=== PATIENT | male | born 1970 | race Caucasian/White ===

== ENCOUNTER 2018-06-30 12:41 | Emergency (ER) | payer OTHER ==
[~2018-06-30] VITALS: Ht 188 cm; Wt 79.5 kg
[2018-06-30 14:00] LABS: BASOPHILS # (AUTO) 0.1 X10'3 (0-0.2); MONOCYTES # (AUTO) 1.2 X10'3 (0-0.9); RED CELL DISTRIBUTION WIDTH 13.5 % (11.5-14.5)
[2018-06-30 14:02] LABS: EOSINOPHILS # (AUTO) 0.2 X10'3 (0-0.9); EOSINOPHILS % (AUTO) 2.1 % (0-6); HEMATOCRIT 40.8 % (42.0-52.0); HEMOGLOBIN 13.6 g/dl (14.0-17.9); LYMPHOCYTES # (AUTO) 2.3 X10'3 (1.1-4.8); LYMPHOCYTES % (AUTO) 20.2 % (21-51); MEAN CORPUSCULAR HEMOGLOBIN 30.2 PG (27.0-31.0); MEAN CORPUSCULAR HGB CONC 33.3 g/dL (33.0-36.5); MEAN CORPUSCULAR VOLUME 90.7 FL (78-98); MEAN PLATELET VOLUME 8.1 FL (7.4-10.4); MONOCYTES % (AUTO) 11.1 % (2-12); NEUTROPHILS # (AUTO) 7.3 X10'3 (1.8-7.7); NEUTROPHILS % (AUTO) 65.6 % (42-75); PLATELET COUNT 394 X10'3 (140-440); WHITE BLOOD COUNT 11.2 X10'3 (4.5-11.0)
[2018-06-30 14:17] LABS: ALANINE AMINOTRANSFERASE 405 U/L (12-78); ALBUMIN 2.9 G/DL (3.4-5.0); ALBUMIN/GLOBULIN RATIO 0.7 (1.1-1.5); ALKALINE PHOSPHATASE 257 IU/L (46-116); ANION GAP 11 (8-16); ASPARTATE AMINO TRANSFERASE 406 U/L (10-37); BILIRUBIN,TOTAL 0.9 MG/DL (0.1-1.0); BLOOD UREA NITROGEN 18 MG/DL (7-18); BUN/CREATININE RATIO 15.8 (5.4-32.0); CHLORIDE 103 MMOL/L (99-107); CREATININE 1.14 MG/DL (0.60-1.10); GLUCOSE 116 MG/DL (70-104); POTASSIUM 4.4 MMOL/L (3.5-5.1); SODIUM 135 MMOL/L (135-145); TOTAL CARBON DIOXIDE 21.1 MMOL/L (24-32); eGFR 69 ML/MIN
--- NOTE | 2018-06-30 15:04 | NUR ---
Called pt. to treatment area, patient not in lobby or outside. No phone number listed. Reviewed labs and discussed with MD, should return. Found phone number for mother, Hoda. She states that pt. doesn't have a phone but she will try and contact son to return.
[2018-06-30] MEDS ORDERED: normal saline 1000ML IV soln IV ONE (16:20)
[2018-06-30 16:56] LABS: ETHANOL < 0.010 GM/DL (0.0-0.010)
--- NOTE | 2018-06-30 17:01 | NUR ---
pt's flu swab was incorrectly labeled with the pt's 's sticker. correct sticker was then placed on specimen.
[2018-06-30] MEDS ORDERED: ipratropium/albuterol 3ml nebule NEB ONE (17:05)
[2018-06-30] MEDS ORDERED: methylPREDNISolone sod succ 125mg/2ml vial IV ONE (17:05)
[2018-06-30 17:11] LABS: URINE AMPHETAMINE SCREEN POSITIVE (Neg); URINE BARBITUATE SCREEN NEGATIVE (Neg); URINE BENZODIAZEPINES SCREEN NEGATIVE (Neg); URINE CANNABINOID SCREEN NEGATIVE (Neg); URINE COCAINE SCREEN NEGATIVE (Neg); URINE METHADONE SCREEN NEGATIVE (Neg); URINE OPIATE SCREEN NEGATIVE (Neg); URINE PHENCYCLIDINE SCREEN NEGATIVE (Neg)
[2018-06-30 17:17] LABS: CLARITY,URINE CLEAR (Clear); COLOR,URINE YELLOW (Yellow); GLUCOSE, URINE NEGATIVE (Neg); KETONES,URINE NEGATIVE (Neg); LEUKOCYTE ESTERASE ,URINE NEGATIVE (Neg); NITRITES, URINE NEGATIVE (Neg); OCCULT BLOOD,URINE NEGATIVE (Neg); PH,URINE 5.5 (4.8-8.0); PROTEIN,URINE 100 mg/dl (Neg)
[2018-06-30 17:18] LABS: UA COLLECTION TYPE CLN CATCH MIDSTREAM
[2018-06-30 17:26] LABS: MUCUS STRANDS FEW /LPF (Neg)
[2018-06-30 17:27] LABS: WBC,URINE 0-4 /HPF (0-4)
[2018-06-30 17:28] LABS: BACTERIA,URINE NONE SEEN /HPF (Neg); RBC,URINE NONE SEEN /HPF (0-2); SQUAMOUS EPITHELIAL CELL,UR NONE SEEN /LPF (FEW)
[2018-06-30 17:29] LABS: AMORPHOUS URATES 1+
[2018-06-30] MEDS ORDERED: AZIT250T2 PO (17:54)
[2018-06-30] MEDS ORDERED: ALBU6.7H INH (17:54)
[2018-06-30 18:20] VITALS: BP 147/71
--- NOTE | 2018-06-30 18:21 | NUR ---
pt having panic attack, pt was positive for meth. vitals stable, pt dc'd home.
== END 2018-06-30 18:11 | disposition home or self-care (01) ==
LOC: ER 12:42
DX: J06.9 Acute upper respiratory infection, unspecified (principal); E86.0 Dehydration; R74.0 Nonspecific elevation of levels of transaminase and lactic acid dehydrogenase [LDH]; I10 Essential (primary) hypertension; F17.200 Nicotine dependence, unspecified, uncomplicated; F15.10 Other stimulant abuse, uncomplicated; Z79.899 Other long term (current) drug therapy; Z90.81 Acquired absence of spleen
CPT/HCPCS: 36415; 71045; 80053; 80305; 80320; 81001; 84484; 85025; 87502; 87503; 93005; 94640; 94760; 96361; 96374; 99284; J2930; J7030

== ENCOUNTER 2018-07-22 17:55 | Inpatient (IN) | payer OTHER ==
[~2018-07-22] VITALS: Ht 190.5 cm; Wt 75.3 kg
[~2018-07-22 17:55] MED LIST: ALBU6.7H INH
[2018-07-22 21:08] LABS: BASOPHILS # (AUTO) 0.1 X10'3 (0-0.2); BASOPHILS % (AUTO) 0.5 % (0-1); EOSINOPHILS # (AUTO) 0.2 X10'3 (0-0.9); EOSINOPHILS % (AUTO) 1.6 % (0-6); HEMOGLOBIN 14.5 g/dl (14.0-17.9); LYMPHOCYTES # (AUTO) 1.4 X10'3 (1.1-4.8); LYMPHOCYTES % (AUTO) 12.4 % (21-51); MEAN CORPUSCULAR HEMOGLOBIN 28.2 PG (27.0-31.0); MEAN CORPUSCULAR HGB CONC 32.2 g/dL (33.0-36.5); MEAN CORPUSCULAR VOLUME 87.7 FL (78-98); MEAN PLATELET VOLUME 7.7 FL (7.4-10.4); MONOCYTES # (AUTO) 0.9 X10'3 (0-0.9); MONOCYTES % (AUTO) 8.2 % (2-12); NEUTROPHILS # (AUTO) 8.8 X10'3 (1.8-7.7); NEUTROPHILS % (AUTO) 77.3 % (42-75); PLATELET COUNT 532 X10'3 (140-440); RED BLOOD COUNT 5.13 X10'6 (4.70-6.10); RED CELL DISTRIBUTION WIDTH 15.3 % (11.5-14.5); WHITE BLOOD COUNT 11.3 X10'3 (4.5-11.0)
[2018-07-22 21:16] LABS: ALBUMIN 2.4 G/DL (3.4-5.0); ALBUMIN/GLOBULIN RATIO 0.6 (1.1-1.5); ALKALINE PHOSPHATASE 307 IU/L (46-116); ANION GAP 10 (8-16); BILIRUBIN,TOTAL 1.6 MG/DL (0.1-1.0); BLOOD UREA NITROGEN 20 MG/DL (7-18); BUN/CREATININE RATIO 16.8 (5.4-32.0); CHLORIDE 101 MMOL/L (99-107); CREATININE 1.19 MG/DL (0.60-1.10); GLUCOSE 130 MG/DL (70-104); POTASSIUM 4.1 MMOL/L (3.5-5.1); SODIUM 135 MMOL/L (135-145); TOTAL CARBON DIOXIDE 24.5 MMOL/L (24-32); TOTAL PROTEIN 6.4 G/DL (6.4-8.2); eGFR 66 ML/MIN
[2018-07-22] MEDS ORDERED: furosemide 10 MG/1 ML 10ml inj IV ONE (21:40)
[2018-07-22 21:42] LABS: ALANINE AMINOTRANSFERASE 2102 U/L (12-78); ASPARTATE AMINO TRANSFERASE 2056 U/L (10-37)
[2018-07-22] MEDS ORDERED: furosemide 40mg/4ml inj IV ONE (21:55)
[2018-07-22] MEDS ORDERED: ondansetron/PF 4mg/2ml inj IV PRN (22:30)
[2018-07-22] MEDS ORDERED: acetaminophen 325mg tablet PO PRN (22:30)
[2018-07-22] MEDS ORDERED: magnesium hydroxide 30ml (MOM) UD suspension PO PRN (22:30)
[2018-07-22] MEDS ORDERED: mag hydrox/Alum hydrox/simeth 30ml oral suspension PO PRN (22:30)
--- NOTE | 2018-07-22 23:01 | NUR ---
Patient in room . I have received report from FABIOLA Bass and had the opportunity to ask questions and assume patient care.
[2018-07-22 23:40] VITALS: BP 126/85
[2018-07-23 05:27] LABS: BASOPHILS % (AUTO) 0.2 % (0-1); EOSINOPHILS # (AUTO) 0.3 X10'3 (0-0.9); EOSINOPHILS % (AUTO) 1.9 % (0-6); HEMATOCRIT 44.3 % (42.0-52.0); HEMOGLOBIN 14.3 g/dl (14.0-17.9); LYMPHOCYTES # (AUTO) 1.5 X10'3 (1.1-4.8); MEAN CORPUSCULAR HEMOGLOBIN 28.3 PG (27.0-31.0); MEAN CORPUSCULAR HGB CONC 32.2 g/dL (33.0-36.5); MEAN PLATELET VOLUME 8.1 FL (7.4-10.4); MONOCYTES # (AUTO) 1.3 X10'3 (0-0.9); MONOCYTES % (AUTO) 9.6 % (2-12); NEUTROPHILS # (AUTO) 10.4 X10'3 (1.8-7.7); NEUTROPHILS % (AUTO) 77.3 % (42-75); PLATELET COUNT 546 X10'3 (140-440); RED BLOOD COUNT 5.04 X10'6 (4.70-6.10); RED CELL DISTRIBUTION WIDTH 15.3 % (11.5-14.5); WHITE BLOOD COUNT 13.5 X10'3 (4.5-11.0)
--- NOTE | 2018-07-23 05:55 | NUR ---
Problems reprioritized. Patient report given, questions answered & plan of care reviewed with FABIOLA Waite. Addendum: 07/23/18 at 0632 by Alex Maurice RN Problems reprioritized. Patient report given, questions answered & plan of care reviewed with FABIOLA Juarez.
[2018-07-23 06:03] LABS: ALBUMIN 2.3 G/DL (3.4-5.0); ALBUMIN/GLOBULIN RATIO 0.6 (1.1-1.5); ALKALINE PHOSPHATASE 288 IU/L (46-116); ANION GAP 8 (8-16); BILIRUBIN,TOTAL 1.3 MG/DL (0.1-1.0); BLOOD UREA NITROGEN 20 MG/DL (7-18); CALCIUM 7.9 MG/DL (8.5-10.1); CHLORIDE 100 MMOL/L (99-107); CREATININE 1.05 MG/DL (0.60-1.10); GLUCOSE 97 MG/DL (70-104); POTASSIUM 3.7 MMOL/L (3.5-5.1); SODIUM 135 MMOL/L (135-145); TOTAL CARBON DIOXIDE 26.7 MMOL/L (24-32); TOTAL PROTEIN 6.1 G/DL (6.4-8.2); TROPONIN I 0.05 NG/ML (0.0-0.05); eGFR 76 ML/MIN
[2018-07-23 06:08] LABS: % IRON SATURATION 4 % (11-46); IRON 15 UG/DL (53-167); TOTAL IRON BINDING CAPACITY 341 UG/DL (259-388)
[2018-07-23 06:12] LABS: ALANINE AMINOTRANSFERASE 1812 U/L (12-78); ASPARTATE AMINO TRANSFERASE 1324 U/L (10-37)
[2018-07-23 07:00] VITALS: BP 125/81
[2018-07-23] MEDS ORDERED: thiamine inj. 100 MG in normal saline 100ml IV soln 100 ML IV ONE ×2 (09:40→12:55)
[2018-07-23] MEDS ORDERED: furosemide 20 MG/2 ML vial IV ONE (09:55)
[2018-07-23] MEDS ORDERED: pneumococcal 23-VAL P-sac vacc 25 mcg/0.5ml vial IMVAC ONE (10:00)
[2018-07-23] MEDS ORDERED: FLU VACC QUAD 2018(5 YR UP)/PF 60 MCG/0.5 ML SYRINGE IM ONE (10:00)
[2018-07-23] MEDS: losartan 50mg tablet PO SCH (10:45)
[2018-07-23 11:00] VITALS: BP 125/89
--- NOTE | 2018-07-23 11:16 | NUR ---
PT HAD 14 BEAT RUN OF V-TACH. HOSPITALIST NOTIFIED. PT TO BE TRANSFERRED TO TELE WHEN BED AVAIALABLE
[2018-07-23] MEDS: folic acid inj. 2 MG, thiamine inj. 100 MG, MVI, adult No.4 with vit. K 10 ML in dextro... IV SCH ×8 (11:30→19:53)
--- NOTE | 2018-07-23 12:25 | NUR ---
Patient in room [facility]. I have received report from Sylvia HICKS and had the opportunity to ask questions and assume patient care. Vitals signs obtained and are stable. Tele #[id number] is on patient and pt is in sinus rhythm. Folic acid bag running at 125 mL/hr, pt is in no apparent distress. Call light given and orientated patient to room. Will continue to monitor.
--- NOTE | 2018-07-23 12:34 | NUR ---
transferred pt to tele.
[2018-07-23 12:47] LABS: URINE AMPHETAMINE SCREEN POSITIVE (Neg); URINE BARBITUATE SCREEN NEGATIVE (Neg); URINE BENZODIAZEPINES SCREEN NEGATIVE (Neg); URINE CANNABINOID SCREEN NEGATIVE (Neg); URINE COCAINE SCREEN NEGATIVE (Neg); URINE METHADONE SCREEN NEGATIVE (Neg); URINE OPIATE SCREEN NEGATIVE (Neg); URINE PHENCYCLIDINE SCREEN NEGATIVE (Neg)
--- NOTE | 2018-07-23 14:48 | NUR ---
Malnutrition consult re: Lost 10# in 3 months. Patient's current wt is up 12# from documented wt of 175# at previous visit 06/30/18; current documented wt is 187#. Pt currently on a heart healthy diet with documented PO intake 100% meeting nutrient needs. Pt with no documented edema or significant decrease in muscle strength. Pt currently does not meet criteria for malnutrition. Will continue to follow and monitor qualifying criteria. Pt with hx of Etoh and meth abuse, pt on w/d protocol which includes banana bag. Will continue to follow. Addendum: 07/23/18 at [address] Amended: Links added.
[2018-07-23] MEDS: LORazepam 2 mg/ml vial IV PRN ×3 (15:46→23:27)
[2018-07-23] MEDS: CefTRIAXone 2gm/D5W 50ml 50 ML IV SCH (16:59)
[2018-07-23 18:00] VITALS: BP 122/80
--- NOTE | 2018-07-23 18:00 | NUR ---
Patient in room PCU 3016. I have received report from Shelia HICKS and had the opportunity to ask questions and assume patient care.
--- NOTE | 2018-07-23 18:05 | NUR ---
promotional table spacer PAGER ID: [phone] MESSAGE: [id number] Asif Soler (FYI) pt had a 5 beat run of VTach, pt asymptomatic with BP 111/65. Thank you, Shelia#[phone]
--- NOTE | 2018-07-23 18:40 | NUR ---
Problems reprioritized. Patient report given, questions answered & plan of care reviewed with Jennifer HICKS.
[2018-07-23] MEDS: furosemide 20 MG/2 ML vial IV SCH (19:54)
[2018-07-23 22:00] VITALS: BP 114/84
[2018-07-24] VITALS (7 sets, daily range): BP systolic 97–120; BP diastolic 61–85
[2018-07-24] MEDS: LORazepam 2 mg/ml vial IV PRN ×3 (04:24→19:36)
[2018-07-24 05:35] LABS: BASOPHILS # (AUTO) 0.1 X10'3 (0-0.2); BASOPHILS % (AUTO) 0.6 % (0-1); EOSINOPHILS # (AUTO) 0.1 X10'3 (0-0.9); EOSINOPHILS % (AUTO) 0.7 % (0-6); HEMATOCRIT 43.6 % (42.0-52.0); HEMOGLOBIN 14.3 g/dl (14.0-17.9); LYMPHOCYTES # (AUTO) 1.5 X10'3 (1.1-4.8); LYMPHOCYTES % (AUTO) 12.2 % (21-51); MEAN CORPUSCULAR HEMOGLOBIN 28.8 PG (27.0-31.0); MEAN CORPUSCULAR HGB CONC 32.7 g/dL (33.0-36.5); MEAN CORPUSCULAR VOLUME 87.8 FL (78-98); MEAN PLATELET VOLUME 7.9 FL (7.4-10.4); MONOCYTES # (AUTO) 1.9 X10'3 (0-0.9); MONOCYTES % (AUTO) 15.2 % (2-12); NEUTROPHILS # (AUTO) 8.7 X10'3 (1.8-7.7); NEUTROPHILS % (AUTO) 71.3 % (42-75); PLATELET COUNT 525 X10'3 (140-440); RED BLOOD COUNT 4.97 X10'6 (4.70-6.10); RED CELL DISTRIBUTION WIDTH 15.2 % (11.5-14.5); WHITE BLOOD COUNT 12.2 X10'3 (4.5-11.0)
--- NOTE | 2018-07-24 06:00 | NUR ---
Problems reprioritized. Patient report given, questions answered & plan of care reviewed with Mirian HICKS.
[2018-07-24 06:05] LABS: ALBUMIN 2.3 G/DL (3.4-5.0); ALBUMIN/GLOBULIN RATIO 0.5 (1.1-1.5); ALKALINE PHOSPHATASE 244 IU/L (46-116); AMYLASE 79 U/L (25-115); ANION GAP 9 (8-16); ASPARTATE AMINO TRANSFERASE 503 U/L (10-37); BLOOD UREA NITROGEN 15 MG/DL (7-18); BUN/CREATININE RATIO 14.4 (5.4-32.0); CALCIUM 8.1 MG/DL (8.5-10.1); CHLORIDE 96 MMOL/L (99-107); CREATININE 1.04 MG/DL (0.60-1.10); GLUCOSE 101 MG/DL (70-104); LIPASE 331 U/L (73-393); MAGNESIUM 1.6 MG/DL (1.5-2.4); PHOSPHORUS 3.1 MG/DL (2.3-4.5); POTASSIUM 3.7 MMOL/L (3.5-5.1); SODIUM 130 MMOL/L (135-145); TOTAL CARBON DIOXIDE 24.9 MMOL/L (24-32); TOTAL PROTEIN 6.5 G/DL (6.4-8.2); eGFR 77 ML/MIN
[2018-07-24 06:08] LABS: ALANINE AMINOTRANSFERASE 1232 U/L (12-78)
[2018-07-24 06:14] LABS: INR 1.1 INR; PROTHROMBIN TIME 11.3 SECONDS (9.0-12.0)
--- NOTE | 2018-07-24 06:30 | NUR ---
Patient in room PCU 3016. I have received report from Jennifer HICKS and had the opportunity to ask questions and assume patient care.
[2018-07-24] MEDS: CefTRIAXone 2gm/D5W 50ml 50 ML IV SCH (08:09)
[2018-07-24] MEDS: furosemide 20 MG/2 ML vial IV SCH ×2 (08:09→19:35)
[2018-07-24] MEDS: losartan 50mg tablet PO SCH (08:10)
[2018-07-24] MEDS ORDERED: potassium Cl 20 mEq SR tablet PO ONE (09:35)
[2018-07-24] MEDS ORDERED: magnesium Cl slow-release 64mg tablet PO PRN (09:40)
[2018-07-24] MEDS ORDERED: magnesium 4gm in 100ml NS 100 ML IV PRN (09:40)
[2018-07-24] MEDS ORDERED: potassium Cl 40MEQ/NS 500ml 500 ML IV PRN ×2 (09:40)
[2018-07-24] MEDS ORDERED: potassium Cl 20 mEq SR tablet PO PRN ×2 (09:40)
--- NOTE | 2018-07-24 09:48 | NUR ---
Dr. Palumbo in to see patient for 17 beat run of VT, orders to replace K to 4.0 and Mg to 2.0. Giving patient a dose of K 40mEq now and follow replacement protocol, following Mg replacement protocol to replace to a level of 2.0. Patient is currently sleeping and calm. Ativan given approx an hour ago. Will continue to monitor.
[2018-07-24] MEDS: carVEDilol 3.125mg tablet PO SCH ×2 (11:47→19:35)
[2018-07-24] MEDS ORDERED: multivitamins, therapeutics tablet PO ONE (12:05)
[2018-07-24] MEDS ORDERED: thiamine 100mg tablet PO ONE (12:05)
[2018-07-24] MEDS ORDERED: folic acid 1mg tablet PO ONE (12:05)
--- NOTE | 2018-07-24 14:13 | NUR ---
Student documentation: I have reviewed and agree with all interventions, assessments performed and documented by Faustina DOHERTY. Student Medication Administration: For this medication-pass time frame, all medication were reviewed, dispensed, administered and documented per hospital policy by Faustina DOHERTY. Problems reprioritized. Patient report given, questions answered & plan of care reviewed with Lubna HICKS.
--- NOTE | 2018-07-24 18:00 | NUR ---
Patient in room PCU 3016. I have received report from Lubna RN, Nancy RN and had the opportunity to ask questions and assume patient care.
--- NOTE | 2018-07-24 18:01 | NUR ---
PAGER ID: [phone] MESSAGE: [id number] pt Ryder had a 5 beat run of Inside [employer]. - [place] [phone]
[2018-07-24] MEDS: potassium Cl 20 mEq SR tablet PO SCH (18:03)
--- NOTE | 2018-07-24 18:27 | NUR ---
[place] Medication Administration: For this medication-pass time frame, medication were reviewed, dispensed, administered and documented per hospital policy by FABIOLA Cruz. [place] documentation: I have reviewed and agree with all interventions, assessments performed and documented by FABIOLA Cruz.
--- NOTE | 2018-07-24 18:51 | NUR ---
PAGER ID: [phone] MESSAGE: [id number] pt Soler pt girlfriend concerned about pt cough and HTN med and also thinks he is having an adverse reaction to Ativan. Please review and advise. - Lubna [phone]
[2018-07-24] MEDS: lactobacillus rhamnosus 10,000 MMU CELLS/CAPSULE PO SCH (19:35)
[2018-07-25] MEDS: LORazepam 2 mg/ml vial IV PRN ×3 (01:48→08:23)
--- NOTE | 2018-07-25 01:50 | NUR ---
Contacted Dr. Hanna to report the JVD noted on the left side of patient's neck by cell phone # [phone].
--- NOTE | 2018-07-25 01:54 | NUR ---
patient pulled out PIV early in the shift. He requested prn Ativan. I had to have the IV restarted. I noticed that the patient has JVD to the Left side. I will report this to the online marketing coordinator MD.
[2018-07-25 02:00] VITALS: BP 101/67
--- NOTE | 2018-07-25 02:30 | NUR ---
Dr. Hanna acknowledged my message regarding this patient's JVD.
[2018-07-25 06:00] VITALS: BP 107/80
--- NOTE | 2018-07-25 06:26 | NUR ---
Problems reprioritized. Patient report given, questions answered & plan of care reviewed with FABIOLA Del Rio.
--- NOTE | 2018-07-25 06:30 | NUR ---
Patient in room PCU 3016. I have received report from FABIOLA Castro and had the opportunity to ask questions and assume patient care.
[2018-07-25 08:00] LABS: BASOPHILS # (AUTO) 0.1 X10'3 (0-0.2); BASOPHILS % (AUTO) 0.9 % (0-1); EOSINOPHILS # (AUTO) 0.2 X10'3 (0-0.9); EOSINOPHILS % (AUTO) 1.8 % (0-6); HEMOGLOBIN 14.3 g/dl (14.0-17.9); LYMPHOCYTES # (AUTO) 2.2 X10'3 (1.1-4.8); MEAN CORPUSCULAR HEMOGLOBIN 28.2 PG (27.0-31.0); MEAN CORPUSCULAR HGB CONC 32.5 g/dL (33.0-36.5); MEAN CORPUSCULAR VOLUME 86.7 FL (78-98); MONOCYTES # (AUTO) 1.8 X10'3 (0-0.9); MONOCYTES % (AUTO) 18.2 % (2-12); NEUTROPHILS # (AUTO) 5.6 X10'3 (1.8-7.7); NEUTROPHILS % (AUTO) 57.1 % (42-75); PLATELET COUNT 595 X10'3 (140-440); RED BLOOD COUNT 5.08 X10'6 (4.70-6.10); RED CELL DISTRIBUTION WIDTH 15.5 % (11.5-14.5); WHITE BLOOD COUNT 9.8 X10'3 (4.5-11.0)
[2018-07-25] MEDS: CefTRIAXone 2gm/D5W 50ml 50 ML IV SCH (08:02)
[2018-07-25] MEDS: furosemide 20 MG/2 ML vial IV SCH ×2 (08:02→19:42)
[2018-07-25] MEDS: thiamine 100mg tablet PO SCH (08:07)
[2018-07-25] MEDS: lactobacillus rhamnosus 10,000 MMU CELLS/CAPSULE PO SCH ×2 (08:07→19:47)
[2018-07-25] MEDS: multivitamins, therapeutics tablet PO SCH (08:08)
[2018-07-25] MEDS: potassium Cl 20 mEq SR tablet PO SCH ×2 (08:08→17:43)
[2018-07-25] MEDS: carVEDilol 3.125mg tablet PO SCH (08:08)
[2018-07-25] MEDS: folic acid 1mg tablet PO SCH (08:08)
[2018-07-25 08:09] LABS: ALANINE AMINOTRANSFERASE 831 U/L (12-78); ALBUMIN 2.4 G/DL (3.4-5.0); ALBUMIN/GLOBULIN RATIO 0.6 (1.1-1.5); ALKALINE PHOSPHATASE 208 IU/L (46-116); AMYLASE 57 U/L (25-115); ANION GAP 10 (8-16); ASPARTATE AMINO TRANSFERASE 207 U/L (10-37); BILIRUBIN,TOTAL 1.1 MG/DL (0.1-1.0); BLOOD UREA NITROGEN 17 MG/DL (7-18); BUN/CREATININE RATIO 16.8 (5.4-32.0); CALCIUM 8.1 MG/DL (8.5-10.1); CHLORIDE 100 MMOL/L (99-107); CREATININE 1.01 MG/DL (0.60-1.10); GLUCOSE 98 MG/DL (70-104); LIPASE 179 U/L (73-393); MAGNESIUM 2.1 MG/DL (1.5-2.4); PHOSPHORUS 3.3 MG/DL (2.3-4.5); POTASSIUM 4.4 MMOL/L (3.5-5.1); SODIUM 134 MMOL/L (135-145); TOTAL CARBON DIOXIDE 24.4 MMOL/L (24-32); TOTAL PROTEIN 6.6 G/DL (6.4-8.2); eGFR 79 ML/MIN
[2018-07-25 08:16] LABS: INR 1.1 INR; PROTHROMBIN TIME 10.8 SECONDS (9.0-12.0)
[2018-07-25] MEDS ORDERED: carVEDilol 3.125mg tablet PO ONE (09:05)
[2018-07-25] MEDS ORDERED: LORazepam 2 mg/ml vial IV PRN (09:40)
[2018-07-25 11:00] VITALS: BP 85/49
[2018-07-25 11:30] VITALS: BP_SYST 90; BP_SYST 97; BP_DIAS 62; BP_DIAS 72
[2018-07-25 15:00] VITALS: BP 104/69
[2018-07-25 15:10] LABS: HEP B CORE AB, IGM Negative (Negative); HEPATITIS C ANTIBODY >11.0 s/co ratio (0.0-0.9)
[2018-07-25 18:00] VITALS: BP 101/73
--- NOTE | 2018-07-25 18:28 | NUR ---
Problems reprioritized. Patient report given, questions answered & plan of care reviewed with FABIOLA Ledbetter.
--- NOTE | 2018-07-25 18:28 | NUR ---
Student documentation: I have reviewed and agree with all interventions, assessments performed and documented by SN Caren.
--- NOTE | 2018-07-25 18:36 | NUR ---
Patient in room U 3016. I have received report from FABIOLA Del Rio and had the opportunity to ask questions and assume patient care. Addendum: 07/25/18 at 1837 by Khloe Marx RN Amended: Links added.
[2018-07-25] MEDS: LORazepam 1 MG tablet PO PRN (19:47)
[2018-07-25] MEDS: carvedilol 6.25mg tablet PO SCH (19:47)
--- NOTE | 2018-07-25 21:25 | NUR ---
did not check pts blood sugar d/t commotion with s/o and pt threatening to go ama. Addendum: 07/25/18 at 2126 by Khloe Marx RN Amended: Links added.
[2018-07-26 05:35] LABS: BASOPHILS # (AUTO) 0.2 X10'3 (0-0.2); BASOPHILS % (AUTO) 1.9 % (0-1); EOSINOPHILS # (AUTO) 0.5 X10'3 (0-0.9); EOSINOPHILS % (AUTO) 5.8 % (0-6); HEMATOCRIT 40.5 % (42.0-52.0); HEMOGLOBIN 13.2 g/dl (14.0-17.9); LYMPHOCYTES # (AUTO) 2.4 X10'3 (1.1-4.8); LYMPHOCYTES % (AUTO) 26.4 % (21-51); MEAN CORPUSCULAR HEMOGLOBIN 28.4 PG (27.0-31.0); MEAN CORPUSCULAR HGB CONC 32.6 g/dL (33.0-36.5); MEAN CORPUSCULAR VOLUME 87.2 FL (78-98); MEAN PLATELET VOLUME 8.2 FL (7.4-10.4); MONOCYTES # (AUTO) 1.6 X10'3 (0-0.9); MONOCYTES % (AUTO) 17.3 % (2-12); NEUTROPHILS # (AUTO) 4.4 X10'3 (1.8-7.7); NEUTROPHILS % (AUTO) 48.6 % (42-75); PLATELET COUNT 544 X10'3 (140-440); RED BLOOD COUNT 4.64 X10'6 (4.70-6.10); RED CELL DISTRIBUTION WIDTH 15.5 % (11.5-14.5); WHITE BLOOD COUNT 9.1 X10'3 (4.5-11.0)
[2018-07-26 05:47] LABS: ALANINE AMINOTRANSFERASE 646 U/L (12-78); ALBUMIN 2.3 G/DL (3.4-5.0); ALBUMIN/GLOBULIN RATIO 0.6 (1.1-1.5); ALKALINE PHOSPHATASE 185 IU/L (46-116); AMYLASE 57 U/L (25-115); ANION GAP 8 (8-16); ASPARTATE AMINO TRANSFERASE 131 U/L (10-37); BILIRUBIN,TOTAL 0.8 MG/DL (0.1-1.0); BLOOD UREA NITROGEN 20 MG/DL (7-18); BUN/CREATININE RATIO 18.2 (5.4-32.0); CALCIUM 8.1 MG/DL (8.5-10.1); CHLORIDE 102 MMOL/L (99-107); GLUCOSE 103 MG/DL (70-104); LIPASE 190 U/L (73-393); MAGNESIUM 1.7 MG/DL (1.5-2.4); PHOSPHORUS 4.2 MG/DL (2.3-4.5); POTASSIUM 4.5 MMOL/L (3.5-5.1); SODIUM 137 MMOL/L (135-145); TOTAL PROTEIN 6.4 G/DL (6.4-8.2); eGFR 72 ML/MIN
[2018-07-26 05:52] LABS: INR 1.1 INR; PROTHROMBIN TIME 10.8 SECONDS (9.0-12.0)
[2018-07-26 06:00] VITALS: BP 110/80
--- NOTE | 2018-07-26 06:19 | NUR ---
Problems reprioritized. Patient report given, questions answered & plan of care reviewed with FABIOLA Cha. Addendum: 07/26/18 at 0619 by Khloe Marx RN Amended: Links added.
--- NOTE | 2018-07-26 06:50 | NUR ---
Patient in room PCU 3016. I have received report from chikis belcher and had the opportunity to ask questions and assume patient care.
[2018-07-26] MEDS: furosemide 20 MG/2 ML vial IV SCH ×2 (07:31→19:31)
[2018-07-26] MEDS: carvedilol 6.25mg tablet PO SCH ×2 (07:50→19:31)
[2018-07-26] MEDS: thiamine 100mg tablet PO SCH (07:50)
[2018-07-26] MEDS: multivitamins, therapeutics tablet PO SCH (07:50)
[2018-07-26] MEDS: CefTRIAXone 2gm/D5W 50ml 50 ML IV SCH (07:50)
[2018-07-26] MEDS: lactobacillus rhamnosus 10,000 MMU CELLS/CAPSULE PO SCH ×2 (07:51→19:31)
[2018-07-26] MEDS: folic acid 1mg tablet PO SCH (07:51)
[2018-07-26] MEDS: potassium Cl 20 mEq SR tablet PO SCH ×2 (08:21→17:19)
[2018-07-26] MEDS ORDERED: FLU VACC QUAD 2018(5 YR UP)/PF 60 MCG/0.5 ML SYRINGE IM ONE (10:00)
[2018-07-26 11:00] VITALS: BP 97/63
[2018-07-26 15:00] VITALS: BP 103/74
--- NOTE | 2018-07-26 15:28 | NUR ---
PAGER ID: [phone] MESSAGE: [id number], PLEASE CALL CHRISTOPHER [phone]. TY
--- NOTE | 2018-07-26 18:39 | NUR ---
Student documentation: I have reviewed and agree with all interventions, assessments performed and documented by WILBERTO MCDERMOTT.
--- NOTE | 2018-07-26 18:40 | NUR ---
Student Medication Administration: For this medication-pass time frame, all medication were reviewed, dispensed, administered and documented per hospital policy by WILBERTO MCDERMOTT.
--- NOTE | 2018-07-26 18:40 | NUR ---
Problems reprioritized. Patient report given, questions answered & plan of care reviewed with FABIOLA ANTHONY.
[2018-07-26 19:00] VITALS: BP 111/79
[2018-07-26] MEDS: lactulose 20gm/30ml cup PO SCH (19:31)
[2018-07-26 20:10] LABS: URINE AMPHETAMINE SCREEN NEGATIVE (Neg); URINE BARBITUATE SCREEN NEGATIVE (Neg); URINE BENZODIAZEPINES SCREEN NEGATIVE (Neg); URINE CANNABINOID SCREEN NEGATIVE (Neg); URINE COCAINE SCREEN NEGATIVE (Neg); URINE METHADONE SCREEN NEGATIVE (Neg); URINE OPIATE SCREEN NEGATIVE (Neg); URINE PHENCYCLIDINE SCREEN NEGATIVE (Neg)
[2018-07-26] MEDS: LORazepam 1 MG tablet PO PRN (21:47)
[2018-07-26 23:00] VITALS: BP 94/57
[2018-07-27] MEDS: lactulose 20gm/30ml cup PO SCH ×4 (02:24→21:02)
[2018-07-27] MEDS: LORazepam 1 MG tablet PO PRN ×2 (02:24→11:14)
[2018-07-27 03:00] VITALS: BP 92/63
[2018-07-27 05:58] LABS: BASOPHILS # (AUTO) 0.1 X10'3 (0-0.2); NEUTROPHILS # (AUTO) 4.5 X10'3 (1.8-7.7)
[2018-07-27 06:00] LABS: BASOPHILS % (AUTO) 1.3 % (0-1); EOSINOPHILS # (AUTO) 0.5 X10'3 (0-0.9); EOSINOPHILS % (AUTO) 5.5 % (0-6); HEMATOCRIT 41.3 % (42.0-52.0); HEMOGLOBIN 13.4 g/dl (14.0-17.9); LYMPHOCYTES # (AUTO) 2.6 X10'3 (1.1-4.8); LYMPHOCYTES % (AUTO) 29.4 % (21-51); MEAN CORPUSCULAR HEMOGLOBIN 28.3 PG (27.0-31.0); MEAN CORPUSCULAR HGB CONC 32.5 g/dL (33.0-36.5); MEAN CORPUSCULAR VOLUME 87.3 FL (78-98); MONOCYTES # (AUTO) 1.2 X10'3 (0-0.9); MONOCYTES % (AUTO) 13.4 % (2-12); NEUTROPHILS % (AUTO) 50.4 % (42-75); PLATELET COUNT 517 X10'3 (140-440); RED BLOOD COUNT 4.74 X10'6 (4.70-6.10); RED CELL DISTRIBUTION WIDTH 14.8 % (11.5-14.5)
[2018-07-27 06:07] LABS: ALANINE AMINOTRANSFERASE 506 U/L (12-78); ALBUMIN 2.3 G/DL (3.4-5.0); ALBUMIN/GLOBULIN RATIO 0.5 (1.1-1.5); ALKALINE PHOSPHATASE 176 IU/L (46-116); AMYLASE 119 U/L (25-115); ANION GAP 9 (8-16); ASPARTATE AMINO TRANSFERASE 88 U/L (10-37); BILIRUBIN,TOTAL 0.6 MG/DL (0.1-1.0); BLOOD UREA NITROGEN 20 MG/DL (7-18); BUN/CREATININE RATIO 17.4 (5.4-32.0); CALCIUM 8.2 MG/DL (8.5-10.1); CHLORIDE 104 MMOL/L (99-107); CREATININE 1.15 MG/DL (0.60-1.10); GLUCOSE 97 MG/DL (70-104); LIPASE 554 U/L (73-393); MAGNESIUM 1.6 MG/DL (1.5-2.4); PHOSPHORUS 4.1 MG/DL (2.3-4.5); POTASSIUM 4.3 MMOL/L (3.5-5.1); SODIUM 139 MMOL/L (135-145); TOTAL CARBON DIOXIDE 26.5 MMOL/L (24-32); TOTAL PROTEIN 6.6 G/DL (6.4-8.2); eGFR 68 ML/MIN
--- NOTE | 2018-07-27 06:30 | NUR ---
Patient in room PCU 3016. I have received report from Shlomo HICKS and had the opportunity to ask questions and assume patient care.
[2018-07-27 07:00] VITALS: BP 112/82
[2018-07-27 07:01] LABS: INR 1.1 INR; PROTHROMBIN TIME 10.9 SECONDS (9.0-12.0)
[2018-07-27] MEDS: CefTRIAXone 2gm/D5W 50ml 50 ML IV SCH (08:28)
[2018-07-27] MEDS: lactobacillus rhamnosus 10,000 MMU CELLS/CAPSULE PO SCH ×2 (08:29→21:02)
[2018-07-27] MEDS: thiamine 100mg tablet PO SCH (08:29)
[2018-07-27] MEDS: carvedilol 6.25mg tablet PO SCH ×2 (08:29→21:02)
[2018-07-27] MEDS: potassium Cl 20 mEq SR tablet PO SCH (08:29)
[2018-07-27] MEDS: furosemide 20 MG/2 ML vial IV SCH ×2 (08:29→20:00)
[2018-07-27] MEDS: multivitamins, therapeutics tablet PO SCH (08:29)
[2018-07-27] MEDS: folic acid 1mg tablet PO SCH (08:30)
--- NOTE | 2018-07-27 09:29 | NUR ---
Initial: Pt admit with acute hepatic injury without encephalopathy and acute systolic CHF. Pt is on Lasix for CHF and transaminitis secondary to alcoholic hepatitis continues to improve per MD progress notes. Pt also with possible PNA with sepsis and blood cultures have been ordered ordered, pt on IV abx per MD progress notes. Pt currently on a heart healthy Na restrict diet with 1500 mL fluid restriction. Documented PO intake 75-100% likely meeting nutrient needs. LBM 07/26. No edema or wounds. Will continue to follow. Recommendations: 1) Continue heart healthy Na restrict diet with fluid restriction per MD 2) Monitor need for ONS/additional protein 3) Wt per rx Addendum: 07/27/18 at [address] Amended: Links added.
[2018-07-27 11:00] VITALS: BP 104/77
[2018-07-27] MEDS: enoxaparin 40mg/0.4ml syringe SUBCUT SCH (14:02)
[2018-07-27 15:00] VITALS: BP 94/56
--- NOTE | 2018-07-27 15:10 | NUR ---
PAGER ID: [phone] MESSAGE: [id number], Ryder. Pt had a 22 beat run of V. Tach. Pt is asymptomatic at this time. Jaye [phone]
[2018-07-27] MEDS ORDERED: potassium Cl 40MEQ/NS 500ml 500 ML IV PRN ×2 (15:50)
[2018-07-27] MEDS ORDERED: magnesium 4gm in 100ml NS 100 ML IV PRN (15:50)
[2018-07-27] MEDS ORDERED: magnesium 2GM in 50ml NS 50 ML IV PRN (15:50)
[2018-07-27] MEDS ORDERED: potassium Cl 20 mEq SR tablet PO PRN ×2 (15:50)
[2018-07-27] MEDS: amiodarone 200mg tablet PO SCH ×2 (15:53→21:02)
[2018-07-27] MEDS: magnesium Cl slow-release 64mg tablet PO PRN (15:59)
--- NOTE | 2018-07-27 16:04 | NUR ---
PAGER ID: [phone] MESSAGE: [id number], Ryder. Pt had a 12 beat run of SVT before I administered the amiodarone and Mag. Pt still asymptomatic. Jaye [phone]
[2018-07-27 18:00] VITALS: BP 93/47
--- NOTE | 2018-07-27 18:15 | NUR ---
Problems reprioritized. Patient report given, questions answered & plan of care reviewed with Tess RN. Patient stable at transfer of care.
--- NOTE | 2018-07-27 18:40 | NUR ---
Patient in room PCU 3016. I have received report from FABIOLA Cee and had the opportunity to ask questions and assume patient care.
[2018-07-27 22:00] VITALS: BP 101/63
[2018-07-28] MEDS: LORazepam 1 MG tablet PO PRN (00:59)
[2018-07-28] MEDS: lactulose 20gm/30ml cup PO SCH ×4 (01:46→19:21)
[2018-07-28 02:00] VITALS: BP 111/79
[2018-07-28] MEDS: LORazepam 2 mg/ml vial IV PRN ×2 (04:47→14:14)
[2018-07-28 06:00] VITALS: BP 100/76
--- NOTE | 2018-07-28 06:22 | NUR ---
Problems reprioritized. Patient report given, questions answered & plan of care reviewed with FABIOLA Francis.
--- NOTE | 2018-07-28 06:31 | NUR ---
Patient in room PCU 3016. I have received report from FABIOLA Pulido and had the opportunity to ask questions and assume patient care.
[2018-07-28 06:44] LABS: ALANINE AMINOTRANSFERASE 415 U/L (12-78); ALBUMIN 2.4 G/DL (3.4-5.0); ALBUMIN/GLOBULIN RATIO 0.5 (1.1-1.5); ALKALINE PHOSPHATASE 176 IU/L (46-116); AMYLASE 70 U/L (25-115); ANION GAP 8 (8-16); ASPARTATE AMINO TRANSFERASE 66 U/L (10-37); BILIRUBIN,TOTAL 0.5 MG/DL (0.1-1.0); BLOOD UREA NITROGEN 18 MG/DL (7-18); BUN/CREATININE RATIO 15.7 (5.4-32.0); CALCIUM 8.2 MG/DL (8.5-10.1); CHLORIDE 102 MMOL/L (99-107); CREATININE 1.15 MG/DL (0.60-1.10); GLUCOSE 105 MG/DL (70-104); LIPASE 211 U/L (73-393); MAGNESIUM 1.8 MG/DL (1.5-2.4); PHOSPHORUS 3.9 MG/DL (2.3-4.5); POTASSIUM 4.6 MMOL/L (3.5-5.1); SODIUM 135 MMOL/L (135-145); TOTAL CARBON DIOXIDE 25.1 MMOL/L (24-32); TOTAL PROTEIN 6.8 G/DL (6.4-8.2); eGFR 68 ML/MIN
[2018-07-28 06:47] LABS: INR 1.1 INR; PROTHROMBIN TIME 10.7 SECONDS (9.0-12.0)
[2018-07-28] MEDS: multivitamins, therapeutics tablet PO SCH (08:51)
[2018-07-28] MEDS: thiamine 100mg tablet PO SCH (08:51)
[2018-07-28] MEDS: carvedilol 6.25mg tablet PO SCH ×2 (08:51→19:22)
[2018-07-28] MEDS: magnesium Cl slow-release 64mg tablet PO PRN ×2 (08:51→19:22)
[2018-07-28] MEDS: spironolactone 25 MG tablet PO SCH (08:51)
[2018-07-28] MEDS: lactobacillus rhamnosus 10,000 MMU CELLS/CAPSULE PO SCH ×2 (08:51→19:22)
[2018-07-28] MEDS: folic acid 1mg tablet PO SCH (08:52)
[2018-07-28] MEDS: furosemide 20 MG/2 ML vial IV SCH ×2 (08:52→19:21)
[2018-07-28] MEDS: amiodarone 200mg tablet PO SCH ×2 (08:52→19:21)
[2018-07-28] MEDS: potassium Cl 20 mEq SR tablet PO SCH (08:52)
[2018-07-28] MEDS: enoxaparin 40mg/0.4ml syringe SUBCUT SCH (08:59)
[2018-07-28] MEDS: CefTRIAXone 2gm/D5W 50ml 50 ML IV SCH (09:07)
[2018-07-28 11:00] VITALS: BP 107/79
[2018-07-28 15:00] VITALS: BP 105/74
[2018-07-28 18:00] VITALS: BP 118/80
--- NOTE | 2018-07-28 18:10 | NUR ---
Problems reprioritized. Patient report given, questions answered & plan of care reviewed with FABIOLA Johnson.
--- NOTE | 2018-07-28 18:11 | NUR ---
Patient in room PCU 3016. I have received report from FABIOLA Francis and had the opportunity to ask questions and assume patient care.
[2018-07-28 22:00] VITALS: BP 102/72
--- NOTE | 2018-07-29 02:00 | NUR ---
Pt refused 0200 vitals.
[2018-07-29] MEDS: lactulose 20gm/30ml cup PO SCH ×4 (02:12→19:32)
--- NOTE | 2018-07-29 04:20 | NUR ---
pt would not let me replace his IV at this time.
[2018-07-29 06:00] VITALS: BP 96/66
[2018-07-29 06:03] LABS: BASOPHILS # (AUTO) 0.1 X10'3 (0-0.2); HEMOGLOBIN 15.7 g/dl (14.0-17.9); RED CELL DISTRIBUTION WIDTH 15.3 % (11.5-14.5)
[2018-07-29 06:05] LABS: BASOPHILS % (AUTO) 1.4 % (0-1); EOSINOPHILS # (AUTO) 0.4 X10'3 (0-0.9); EOSINOPHILS % (AUTO) 5.5 % (0-6); HEMATOCRIT 47.7 % (42.0-52.0); LYMPHOCYTES # (AUTO) 2.4 X10'3 (1.1-4.8); LYMPHOCYTES % (AUTO) 31.4 % (21-51); MEAN CORPUSCULAR HEMOGLOBIN 28.7 PG (27.0-31.0); MEAN CORPUSCULAR HGB CONC 32.9 g/dL (33.0-36.5); MEAN CORPUSCULAR VOLUME 87.4 FL (78-98); MEAN PLATELET VOLUME 8.1 FL (7.4-10.4); MONOCYTES # (AUTO) 1.1 X10'3 (0-0.9); MONOCYTES % (AUTO) 14.3 % (2-12); NEUTROPHILS # (AUTO) 3.7 X10'3 (1.8-7.7); NEUTROPHILS % (AUTO) 47.4 % (42-75); PLATELET COUNT 552 X10'3 (140-440); RED BLOOD COUNT 5.46 X10'6 (4.70-6.10); WHITE BLOOD COUNT 7.8 X10'3 (4.5-11.0)
--- NOTE | 2018-07-29 06:16 | NUR ---
Problems reprioritized. Patient report given, questions answered & plan of care reviewed with FABIOLA Aguirre.
[2018-07-29 06:23] LABS: ALANINE AMINOTRANSFERASE 366 U/L (12-78); ALBUMIN 2.8 G/DL (3.4-5.0); ALBUMIN/GLOBULIN RATIO 0.6 (1.1-1.5); ALKALINE PHOSPHATASE 188 IU/L (46-116); ANION GAP 8 (8-16); ASPARTATE AMINO TRANSFERASE 61 U/L (10-37); BILIRUBIN,TOTAL 0.6 MG/DL (0.1-1.0); BLOOD UREA NITROGEN 22 MG/DL (7-18); BUN/CREATININE RATIO 16.2 (5.4-32.0); CALCIUM 8.8 MG/DL (8.5-10.1); CHLORIDE 104 MMOL/L (99-107); CREATININE 1.36 MG/DL (0.60-1.10); GLUCOSE 92 MG/DL (70-104); PHOSPHORUS 4.4 MG/DL (2.3-4.5); POTASSIUM 4.5 MMOL/L (3.5-5.1); SODIUM 139 MMOL/L (135-145); TOTAL CARBON DIOXIDE 26.8 MMOL/L (24-32); TOTAL PROTEIN 7.8 G/DL (6.4-8.2); eGFR 56 ML/MIN
[2018-07-29] MEDS: LORazepam 2 mg/ml vial IV PRN ×2 (06:23→15:50)
--- NOTE | 2018-07-29 06:23 | NUR ---
Patient in room PCU 3016. I have received report from Alex HICKS and had the opportunity to ask questions and assume patient care.
[2018-07-29] MEDS: lactobacillus rhamnosus 10,000 MMU CELLS/CAPSULE PO SCH ×2 (08:33→19:32)
[2018-07-29] MEDS: spironolactone 25 MG tablet PO SCH (08:33)
[2018-07-29] MEDS: multivitamins, therapeutics tablet PO SCH (08:33)
[2018-07-29] MEDS: folic acid 1mg tablet PO SCH (08:33)
[2018-07-29] MEDS: thiamine 100mg tablet PO SCH (08:33)
[2018-07-29] MEDS: amiodarone 200mg tablet PO SCH ×2 (08:33→19:31)
[2018-07-29] MEDS: enoxaparin 40mg/0.4ml syringe SUBCUT SCH (08:35)
[2018-07-29] MEDS: carvedilol 6.25mg tablet PO SCH ×2 (08:36→20:00)
[2018-07-29] MEDS: furosemide 20 MG/2 ML vial IV SCH ×2 (08:36→20:00)
[2018-07-29] MEDS: CefTRIAXone 2gm/D5W 50ml 50 ML IV SCH (08:37)
[2018-07-29] MEDS: potassium Cl 20 mEq SR tablet PO SCH (08:37)
[2018-07-29 11:00] VITALS: BP 101/73
[2018-07-29 15:00] VITALS: BP 97/69
[2018-07-29 18:00] VITALS: BP 99/56
--- NOTE | 2018-07-29 18:05 | NUR ---
Patient in room PCU 3016. I have received report from Timothy and had the opportunity to ask questions and assume patient care.
--- NOTE | 2018-07-29 18:51 | NUR ---
Patient in room PCU 3016. I have received report from Alirio HICKS and had the opportunity to ask questions and assume patient care.
[2018-07-29 22:00] VITALS: BP 103/73
[2018-07-30] MEDS: lactulose 20gm/30ml cup PO SCH ×3 (02:33→13:38)
[2018-07-30 06:00] VITALS: BP 111/77
[2018-07-30 06:00] LABS: BASOPHILS # (AUTO) 0.2 X10'3 (0-0.2); EOSINOPHILS # (AUTO) 0.6 X10'3 (0-0.9); EOSINOPHILS % (AUTO) 6.3 % (0-6); HEMATOCRIT 43.5 % (42.0-52.0); HEMOGLOBIN 14.6 g/dl (14.0-17.9); LYMPHOCYTES # (AUTO) 2.6 X10'3 (1.1-4.8); LYMPHOCYTES % (AUTO) 26.1 % (21-51); MEAN CORPUSCULAR HEMOGLOBIN 28.9 PG (27.0-31.0); MEAN CORPUSCULAR HGB CONC 33.5 g/dL (33.0-36.5); MEAN CORPUSCULAR VOLUME 86.3 FL (78-98); MONOCYTES # (AUTO) 1.2 X10'3 (0-0.9); NEUTROPHILS # (AUTO) 5.3 X10'3 (1.8-7.7); NEUTROPHILS % (AUTO) 53.6 % (42-75); PLATELET COUNT 594 X10'3 (140-440); RED BLOOD COUNT 5.04 X10'6 (4.70-6.10); RED CELL DISTRIBUTION WIDTH 15.1 % (11.5-14.5); WHITE BLOOD COUNT 9.8 X10'3 (4.5-11.0)
--- NOTE | 2018-07-30 06:20 | NUR ---
Problems reprioritized. Patient report given, questions answered & plan of care reviewed with Esther.
[2018-07-30 06:21] LABS: ALANINE AMINOTRANSFERASE 276 U/L (12-78); ALBUMIN 2.7 G/DL (3.4-5.0); ALBUMIN/GLOBULIN RATIO 0.6 (1.1-1.5); ALKALINE PHOSPHATASE 165 IU/L (46-116); ANION GAP 6 (8-16); ASPARTATE AMINO TRANSFERASE 55 U/L (10-37); BILIRUBIN,TOTAL 0.7 MG/DL (0.1-1.0); BLOOD UREA NITROGEN 24 MG/DL (7-18); BUN/CREATININE RATIO 17.1 (5.4-32.0); CALCIUM 8.6 MG/DL (8.5-10.1); CHLORIDE 103 MMOL/L (99-107); GLUCOSE 89 MG/DL (70-104); PHOSPHORUS 4.3 MG/DL (2.3-4.5); POTASSIUM 4.3 MMOL/L (3.5-5.1); SODIUM 135 MMOL/L (135-145); TOTAL CARBON DIOXIDE 25.8 MMOL/L (24-32); TOTAL PROTEIN 7.2 G/DL (6.4-8.2); eGFR 54 ML/MIN
--- NOTE | 2018-07-30 06:30 | NUR ---
Patient in room PCU 3016. I have received report from FABIOLA Liu and had the opportunity to ask questions and assume patient care.
[2018-07-30] MEDS: furosemide 20 MG/2 ML vial IV SCH (08:50)
[2018-07-30] MEDS: carvedilol 6.25mg tablet PO SCH (08:51)
[2018-07-30] MEDS: folic acid 1mg tablet PO SCH (08:51)
[2018-07-30] MEDS: lactobacillus rhamnosus 10,000 MMU CELLS/CAPSULE PO SCH (08:51)
[2018-07-30] MEDS: thiamine 100mg tablet PO SCH (08:51)
[2018-07-30] MEDS: amiodarone 200mg tablet PO SCH (08:51)
[2018-07-30] MEDS: potassium Cl 20 mEq SR tablet PO SCH (08:51)
[2018-07-30] MEDS: spironolactone 25 MG tablet PO SCH (08:51)
[2018-07-30] MEDS: multivitamins, therapeutics tablet PO SCH (08:51)
[2018-07-30] MEDS: enoxaparin 40mg/0.4ml syringe SUBCUT SCH (08:52)
[2018-07-30 12:02] VITALS: BP 95/61
[2018-07-30] MEDS ORDERED: MULT-1179 PO (14:52)
[2018-07-30] MEDS ORDERED: FOLI1TAB16 PO (14:52)
[2018-07-30] MEDS ORDERED: SPIR25TA PO (14:52)
[2018-07-30] MEDS ORDERED: LACT10SO32 PO (14:52)
[2018-07-30] MEDS ORDERED: LACT1CAP26 PO (14:52)
[2018-07-30] MEDS ORDERED: POTA10TA36 PO (14:52)
[2018-07-30] MEDS ORDERED: thiamine tablet PO (14:52)
[2018-07-30] MEDS ORDERED: AMIO200T40 PO (14:52)
[2018-07-30] MEDS ORDERED: CARV6.253 PO (14:52)
[2018-07-30] MEDS ORDERED: FURO-150 PO (14:52)
[2018-07-30] MEDS ORDERED: LOSA50TA64 PO (15:01)
--- NOTE | 2018-07-30 15:50 | NUR ---
DC inst provided to pt. All belongings sent w/pt. WC to front lobby.
== END 2018-07-30 15:48 | disposition home or self-care (01) | DRG 441 ==
LOC: ER 17:56 → SUR 3N 22:26 → PCU 3S 07-23 12:58
PROVIDERS: ADMIT Internal Medicine; ATTEND Family Medicine
PROC: 3E0234Z Introduction of Serum, Toxoid and Vaccine into Muscle, Percutaneous Approach (ICD-10-PCS; 2018-07-23)
PROC: 3E02340 Introduction of Influenza Vaccine into Muscle, Percutaneous Approach (ICD-10-PCS; principal; 2018-07-26)
DX: K72.90 Hepatic failure, unspecified without coma (principal); J18.9 Pneumonia, unspecified organism; K85.90 Acute pancreatitis without necrosis or infection, unspecified; I50.23 Acute on chronic systolic (congestive) heart failure; I47.2 Ventricular tachycardia; I43 Cardiomyopathy in diseases classified elsewhere; I42.6 Alcoholic cardiomyopathy; I42.7 Cardiomyopathy due to drug and external agent; I11.0 Hypertensive heart disease with heart failure; B19.20 Unspecified viral hepatitis C without hepatic coma; F10.20 Alcohol dependence, uncomplicated; F15.10 Other stimulant abuse, uncomplicated; F17.210 Nicotine dependence, cigarettes, uncomplicated; N50.89 Other specified disorders of the male genital organs; K70.10 Alcoholic hepatitis without ascites; Z59.0 Homelessness; Z79.899 Other long term (current) drug therapy; Z23 Encounter for immunization; Z90.81 Acquired absence of spleen; Z56.0 Unemployment, unspecified; Z91.19 Patient's noncompliance with other medical treatment and regimen; Z88.8 Allergy status to other drugs, medicaments and biological substances; Z71.41 Alcohol abuse counseling and surveillance of alcoholic; Z71.51 Drug abuse counseling and surveillance of drug abuser
CPT/HCPCS: 36415; 71046; 76700; 80053; 80305; 82140; 82150; 82948; 83540; 83550; 83690; 83735; 83880; 84100; 84145; 84484; 85025; 85610; 86705; 86803; 87040; 87070; 90732; 93005; 93306; 96365; 99285; G0378; J0696; J1650; J1940; J2060; J3411; J3475; J3490; J7030; J7060; Q2037